=== PATIENT | female | born 1960 | race Caucasian/White ===

== ENCOUNTER 2016-09-06 09:41 | Day surgery (SDC) | payer MEDICARE, OTHER ==
[~2016-09-06 09:41] MED LIST: LACTATED RINGERS 1,000 ML IV SCH
[2016-09-06] MEDS ORDERED: LACTATED RINGERS 1,000 ML ONE (10:39)
[2016-09-06] MEDS ORDERED: IV START KIT ONE (10:39)
[2016-09-06] MEDS ORDERED: PROPOFOL 40 ML IV ONE (11:10)
--- NOTE | 2016-09-08 12:55 | SURGPATH ---
[facility] [address] [place] [id number] Patient Name: CESAR CROWDER MR#: [id number] : 1960 Gender: F Specimen #: [id number] Collected: 09/06/2016 Received: 09/07/2016 Reported: 09/08/2016 Submitting Phys: ANDREY ORTIZ Copy To Phys: [facility] ASHTYN JONES Clinical History / Pre-Operative Diagnosis: LLQ PAIN; FAMILY HISTORY OF COLON CANCER; RULE OUT COLITIS Specimen Source / Surgical Procedure Performed: #1-COLON POLYP AT SPLENIC FLEXURE; #2-TRANSVERSE COLON POLYP; #3-CECAL BIOPSIES; #4-SIGMOID COLON BIOPSIES AT 30 CM Interpretation: 1. COLON POLYP AT SPLENIC FLEXURE: - TUBULAR ADENOMA. 2. TRANSVERSE COLON POLYP: - BENIGN, MILDLY EDEMATOUS COLONIC MUCOSA; NO DIAGNOSTIC ADENOMATOUS OR HYPERPLASTIC CHANGES IDENTIFIED. 3. CECAL BIOPSIES: - NO SIGNIFICANT PATHOLOGIC ABNORMALITIES IDENTIFIED. 4. SIGMOID COLON BIOPSIES AT 30 CM: - NO SIGNIFICANT PATHOLOGIC ABNORMALITIES IDENTIFIED. Electronically Signed Out Katia Levaitt M.D. Gross Description: #1 The specimen is received in a formalin filled container labeled with the patient's name and "colon polyp at splenic flexure". A single neves biopsy is 0.5 x 0.4 x 0.2 cm. Totally embedded in cassette #1. #2 The specimen is received in a formalin filled container labeled with the patient's name and "transverse colon polyp". A flat mathews biopsy is 0.3 x 0.2 x 0.1 cm. Totally embedded in cassette #2. #3 The specimen is received in a formalin filled container labeled with the patient's name and "cecal biopsies". Two neves biopsies are 0.2 and 0.5 cm. Totally embedded in cassette #3. #4 The specimen is received in a formalin filled container labeled with the patient's name and "sigmoid colon biopsies at 30 cm". Two mathews-neves biopsies are 0.3 and 0.4 cm. Totally embedded in cassette #4. Florencio Hinojosa Microscopic Description: 1. Sections of the polyp at the splenic flexure show adenomatous mucosal changes without evidence of high-grade dysplasia or invasive carcinoma. 2. Sections of the transverse colon polyp show a small fragment of mildly edematous colonic mucosa. No diagnostic adenomatous or hyperplastic changes are identified. 3. Sections of the cecal biopsies show benign colonic mucosa with no significant pathologic changes. 4. Sections of the sigmoid colon biopsies show benign colonic mucosa with no significant pathologic changes. 1: 08092 2: 95830 3: 70207 4: 00456 D12.3
== END 2016-09-06 12:44 | disposition home or self-care (01) ==
LOC: SDC 09:41
PROVIDERS: ATTEND Internal Medicine Gastroenterology
PROC: 0DBL8ZX Excision of Transverse Colon, Via Natural or Artificial Opening Endoscopic, Diagnostic (ICD-10-PCS; principal; 2016-09-06)
PROC: 0DBH8ZX Excision of Cecum, Via Natural or Artificial Opening Endoscopic, Diagnostic (ICD-10-PCS; 2016-09-06)
PROC: 0DBN8ZX Excision of Sigmoid Colon, Via Natural or Artificial Opening Endoscopic, Diagnostic (ICD-10-PCS; 2016-09-06)
DX: K59.8 Other specified functional intestinal disorders (principal); D12.3 Benign neoplasm of transverse colon; Z86.010 Personal history of colon polyps; Z80.0 Family history of malignant neoplasm of digestive organs; I10 Essential (primary) hypertension; E78.5 Hyperlipidemia, unspecified; E11.9 Type 2 diabetes mellitus without complications; J44.9 Chronic obstructive pulmonary disease, unspecified; Z79.4 Long term (current) use of insulin; Z79.84 Long term (current) use of oral hypoglycemic drugs; Z88.2 Allergy status to sulfonamides; Z88.5 Allergy status to narcotic agent; Z88.8 Allergy status to other drugs, medicaments and biological substances; Z79.82 Long term (current) use of aspirin; Z87.891 Personal history of nicotine dependence
CPT/HCPCS: 45385; 45380; J7120